=== PATIENT | female | born 1985 | race Caucasian/White ===

== ENCOUNTER 2024-10-27 12:58 | Emergency (ER) | payer BC ==
[~2024-10-27 12:58] MED LIST: Iopamidol 300 61% 100 ML VIAL FS ONE
[2024-10-27] MEDS ORDERED: Ketorolac Tromethamine 30 MG (1 mL) VIAL ONE (13:34)
[2024-10-27 13:49] LABS: #Basophils 0.04 10x3/uL (0.0-0.2); #Eosinophils 0.10 10x3/uL (0.0-0.5); #Monocytes 0.42 10x3/uL (0.0-1.1); #Neutrophils 3.21 10x3/uL (1.5-8.4); %Basophils 0.7 % (0.0-2.0); %Eosinophils 1.7 % (0.0-6.0); %Lymphocytes 34.8 % (18.0-47.0); %Monocytes 7.2 % (0.0-10.0); %Neutrophils 55.3 % (40.0-75.0); Hematocrit 41.6 % (34.9-44.5); Hemoglobin 13.9 g/dL (12.0-15.5); Mean Corpuscular Hemoglobin 28.9 pg (27.0-33.0); Mean Corpuscular Volume 86.5 fL (81.6-98.3); Platelet Count 337 10x3/uL (150-450); Red Blood Cell (RBC) Count 4.81 10x6/uL (3.90-5.03); White Blood Cell (WBC) Count 5.81 10x3/uL (3.5-10.5)
[2024-10-27 14:09] LABS: ALT (SGPT) 910 U/L (Less than 34); AST (SGOT) 639 U/L (11-34); Albumin 3.8 g/dL (3.1-4.5); Alkaline Phosphatase 251 U/L (40-110); Anion Gap 10 mmol/L (10-20); BUN (Urea Nitrogen) 11 mg/dL (7.0-18.7); Bilirubin, Total 5.4 mg/dL (0.3-1.2); Calc. Creatinine Clearance 0 mL/min (70-130); Calcium 8.8 mg/dL (7.8-10.44); Carbon Dioxide 25 mmol/L (22-29); Chloride 109 mmol/L (98-107); Globulin 3.9 g/dL (2.4-3.5); Glucose 96 mg/dL (70-105); Lipase 24 U/L (8-78); Potassium 3.5 mmol/L (3.5-5.1); Sodium 140 mmol/L (136-145)
[2024-10-27] MEDS ORDERED: Ondansetron PF 4 MG/2 ML Vial ONE (16:40)
[2024-10-27 17:15] LABS: INR-International Normal Ratio 1.0; Prothrombin Time 10.5 sec (9.5-12.1)
[2024-10-27 20:03] LABS: Hep A IgM AB NONREACTIVE (NonReactive); Hep A IgM S/CO 0.18 S/CO (0-0.79); Hep B Core IgM Index 0.10 S/CO (0-0.79); Hep C IgG Ab NONREACTIVE S/CO (NonReactive); Hep C Index 0.09 S/CO (0-0.79)
[2024-10-27 20:46] LABS: Hep B Surf Ag NONREACTIVE S/CO (NonReactive)
== END 2024-10-27 16:52 | disposition home or self-care (01) ==
LOC: CSHERS 12:58
DX: B17.9 Acute viral hepatitis, unspecified (principal)
CPT/HCPCS: 36415; 74177; 76705; 80053; 80074; 83690; 85025; 85610; 96374; 96375; J1885; J2405; Q9967